=== PATIENT | female | born 1990 | race Caucasian/White ===

== ENCOUNTER → 2021-08-02 | Day surgery (SDC) | payer OTHER ==
[~2021-08-02] VITALS: Ht 162.6 cm; Wt 74.0 kg
[~2021-08-02] MED LIST: AMLO-186 PO; ARIP10TA9 PO; DICY10SO2 PO; IV RINGERS,LACTATED 1000ML 1,000 ML IV SCH; LISI20TA18 PO; PROPOFOL 10 MG/ML (20ML) VIAL. IV ONE; SERT100T PO
[2021-08-02 09:47] VITALS: BP 184/93
[2021-08-02 11:50] VITALS: BP 150/89
--- NOTE | 2021-08-03 18:22 | PATHOLOGY ---
[facility] Accession Number: [id number] . 01 Material submitted: . PART A: small bowel - SMALL BOWEL BIOPSY PART B: stomach - GASTRIC ANTRUM AND BODY BIOPSY PART C: esophagus - DISTAL ESOPHAGUS BIOPSY. Modifiers: distal PART D: ileum - TERMINAL ILEUM BIOPSY PART E: colon - RIGHT COLON BIOPSY. Modifiers: right PART F: colon - LEFT COLON BIOPSY. Modifiers: left . 01 Clinical history: . ABD PAIN, DIARRHEA EGD, COLONOSCOPY . 02 Diagnosis: A. Small bowel biopsies: - No diagnostic abnormalities. . B. Gastric biopsies, gastric body and antrum: - Chronic gastritis, mild. . C. Esophageal biopsies, distal esophagus: - Segments of esophagogastric and gastric mucosa showing mild chronic inflammation, consistent with reflux changes. . D. Small intestine mucosa, terminal ileum biopsies: - No diagnostic abnormalities. . E. Colonic mucosa, right colon biopsies: - No diagnostic abnormalities. . F. Colonic mucosa, left colon biopsies: - No diagnostic abnormalities. . (JPM:mm; 08/03/2021) [facility] 08/03/2021 1715 Local . 02 Comment: Sections of the small bowel biopsy reveal segments of duodenal and small intestine mucosa. Where best oriented, the mucosal villi show no sprue-like changes or significant inflammatory changes. . Sections of the gastric biopsy reveal segments of gastric antral and gastric body mucosa. The gastric body mucosa shows superficial congestion and slight chronic inflammation. The gastric antral mucosa shows congestion and mild chronic inflammation. A properly-controlled immunoperoxidase stain for Helicobacter is negative for Helicobacter organisms. . Sections of the distal esophageal biopsy reveal segments of esophagogastric and gastric mucosa showing focal mild chronic inflammation. The squamous esophageal mucosa is hyperplastic. The findings are consistent with reflux changes. There is no evidence of Mei's change, dysplasia, or malignancy. . Sections of the terminal ileum biopsy reveal segments of small intestine mucosa. Where best oriented, the mucosal villi show no sprue-like changes or significant inflammatory changes. . Sections of the right colon and left colon biopsies appear similar and reveal segments of colonic mucosa. There is no evidence of a chronic destructive colitis, lymphocytic colitis or collagenous colitis. . Special stain performed: Immunoperoxidase stain for Helicobacter on B1 . (JPM:mml; 08/03/2021) . 02 Electronically signed: . Kadeem Handley MD, Pathologist NPI- [id number] . 01 Gross description: . A. The specimen is received in formalin, labeled "Karina, Valerie, small bowel BX". Received are multiple segments of pale garcia tissue ranging in size from 0.2 cm to 0.6 cm in maximum dimensions. The specimen is submitted entirely in cassette A1. . B. The specimen is received in formalin, labeled "Karina, Valerie, gastric antrum and body BX". Received are 3 segments of pale garcia tissue ranging in size from 0.3 to 0.4 cm in maximum dimensions. The specimen is submitted entirely in cassette B1. . C. The specimen is received in formalin, labeled "Karina, Valerie, distal esophagus BX". Received are 4 segments of pale garcia tissue ranging in size from 0.2 cm to 0.4 cm in maximum dimensions. The specimen is submitted entirely in cassette C1. . D. The specimen is received in formalin, labeled "Karina, Valerie, terminal ileum BX". Received are 2 segments of pale garcia tissue ranging in size from 0.3 to 0.5 cm in maximum dimensions. The specimen is submitted entirely in cassette D1. . E. The specimen is received in formalin, labeled "Karina, Valerie, right colon BX". Received are 4 segments of pale garcia tissue ranging in size from 0.3 to 0.4 cm in maximum dimensions. The specimen is submitted entirely in cassette E1. . F. The specimen is received in formalin, labeled "Karina, Valerie, left colon BX". Received are 4 segments of pale garcia tissue ranging in size from 0.4 to 0.7 cm in maximum dimensions. The specimen is submitted entirely in cassette F1.([facility]; 08/02/2021) [facility] 08/02/2021 [facility]3 Local . 02 Pathologist provided ICD-10: K29.50, K20.90, R10.9, R19.7, Z12.11 . 02 CPT . 727527, [id number], [id number], [id number], [id number], [id number], [id number] Specimen Comment: A courtesy copy of this report has been sent to [phone], [phone] Specimen Comment: 1988 Specimen Comment: Report sent to / DR CUNNINGHAM Specimen Comment: A duplicate report has been generated due to demographic updates. Performed at: 01 [facility] [address], [place] [id number] MD Keron Cody MD Phone: [phone] Performed at: 02 [facility] [address], [place] [id number] MD Kadeem Handley MD Phone: [phone]
== END | disposition home or self-care (01) ==
LOC: ENDOS 08:50
PROVIDERS: ATTEND Internal Medicine Gastroenterology
DX: K52.9 Noninfective gastroenteritis and colitis, unspecified (principal); R10.10 Upper abdominal pain, unspecified; K64.0 First degree hemorrhoids; K21.00 Gastro-esophageal reflux disease with esophagitis, without bleeding; K29.50 Unspecified chronic gastritis without bleeding; K31.89 Other diseases of stomach and duodenum; K63.89 Other specified diseases of intestine; I10 Essential (primary) hypertension; J45.909 Unspecified asthma, uncomplicated; F41.9 Anxiety disorder, unspecified; Z87.440 Personal history of urinary (tract) infections; Z87.891 Personal history of nicotine dependence; Z79.899 Other long term (current) drug therapy; Z98.51 Tubal ligation status; Z98.890 Other specified postprocedural states; Z72.89 Other problems related to lifestyle; Z88.8 Allergy status to other drugs, medicaments and biological substances; Z20.822 Contact with and (suspected) exposure to COVID-19
CPT/HCPCS: 43239; 45380; 81025; 87426; J2704; 88305; 88342